=== PATIENT | male | born 1970 | race Caucasian/White ===

== ENCOUNTER 2023-10-27 05:33 | Inpatient (IN) ==
[~2023-10-27 05:33] MED LIST: Haloperidol 5 mg/ml SDV IV/IM 5 MG/ML AMP IV SLOW PU PRN; Lidocaine 4 MG/ML IV PREMIX 200 MG/50 ML BAG IV SCH; Naloxone 0.4 mg VIAL 0.4 mg/ml 1 ml VIAL IV PRN
[2023-10-27] MEDS ORDERED: Scopolamine 1 mg/72hr PATCH ONE (06:15)
[2023-10-27] MEDS ORDERED: Heparin 5000 UNITS/ML 1 mL VIAL ONE (06:15)
[2023-10-27] MEDS ORDERED: ceFAZolin *3* GM in NS PREMIX 3 GM/100 ML BAG IV ONE (06:16)
[2023-10-27] MEDS: Scopolamine 1 mg/72hr PATCH TRANSDERM ONE (06:20)
[2023-10-27 06:40] LABS: Rapid COVID-19 Molecular Undetected (Undetected)
[2023-10-27] MEDS ORDERED: fentaNYL 100 mcg/2 ml 50 MCG/ML VIAL ONE ×2 (06:42→11:11)
[2023-10-27] MEDS ORDERED: Propofol 10 MG/ML 20 ML BTL ONE (06:42)
[2023-10-27] MEDS ORDERED: Rocuronium 50 mg VIAL 10 mg/ml 5 ml VIAL (50 mg) ONE (06:42)
[2023-10-27] MEDS ORDERED: Ondansetron 4 mg VIAL 2 MG/ML 2 ml VIAL ONE (06:42)
[2023-10-27] MEDS ORDERED: Dexamethasone IV 4 MG/ML VIAL 1 ml VIAL ONE (06:42)
[2023-10-27] MEDS ORDERED: Lidocaine 2% PF 5 ML VIAL ONE (06:42)
[2023-10-27] MEDS ORDERED: Midazolam 2 mg/2 ml VIAL 1 mg/ml 2 ml VIAL (2 mg) ONE (06:43)
[2023-10-27] MEDS ORDERED: Methylene Blue 1% (ANTIDOTE) 10 MG/ML 10 ML SDV VIAL IVPB ONE (07:16)
[2023-10-27] MEDS ORDERED: Bupivacaine 0.25% EPI 200,000 30 ML SDV ONE (07:16)
[2023-10-27] MEDS ORDERED: Lidocaine 4 MG/ML IV PREMIX 2,000 MG/500 ML BAG IV ONE (07:26)
[2023-10-27] MEDS ORDERED: KETAMINE HCL 10 MG/ML 20 ml VIAL (200 MG) ONE (08:27)
[2023-10-27] MEDS ORDERED: HYDROmorphone 1 MG/1 ML SYRINGE ONE (10:40)
[2023-10-27] MEDS: HYDROmorphone 1 MG/1 ML SYRINGE IV SLOW PU PRN (10:43)
[2023-10-27] MEDS: Lactated Ringers 1000 ml BAG 1,000 ML IV SCH ×2 (11:05→13:03)
[2023-10-27] MEDS: Buffered Lidocaine 1% SYRIN 1 ml INTRADERM ONE (11:05)
[2023-10-27] MEDS: fentaNYL 100 mcg/2 ml 50 MCG/ML VIAL IV PRN (11:14)
[2023-10-27] MEDS ORDERED: Ondansetron 4 mg VIAL 2 MG/ML 2 ml VIAL IV PRN (11:18)
[2023-10-27] MEDS ORDERED: HYDROcodone/ACET. 7.5/325 LIQ 15 ML UDC PO PRN (11:18)
[2023-10-27] MEDS ORDERED: Acetaminophen IV 1 GM/100ML 1,000 MG/100 ML BAG IV PRN (11:18)
[2023-10-27] MEDS ORDERED: HYDROmorphone 0.5 MG/0.5 ML SYRINGE IV SLOW PU PRN (11:18)
[2023-10-27] MEDS ORDERED: HYDROmorphone 1 MG/1 ML SYRINGE IV SLOW PU PRN (11:18)
[2023-10-27] MEDS: Heparin 5000 UNITS/ML 1 mL VIAL SUBCUT SCH (14:47)
[2023-10-27] MEDS: Famotidine IV 10 MG/ML 2 ml VIAL (20 mg) IV SLOW PU SCH (22:07)
[2023-10-28] MEDS: D5W 1/2 NS KCl 20 meq 1000 ml 1,000 ML IV SCH (11:45)
[2023-10-28 14:25] VITALS: BP 111/68
== END 2023-10-28 14:55 | disposition home or self-care (01) | DRG 621 ==
LOC: AA 05:33 → SSU 10:54
PROVIDERS: ADMIT Surgery; ATTEND Surgery